=== PATIENT | female | born 1945 ===

== ENCOUNTER 2017-02-25 20:06 | Emergency (ER) | payer MEDICARE, MEDICAID ==
[2017-02-25 20:19] VITALS: BP 141/76; PULSE 74; RESP 18; TEMP 98.2; O2SAT 97
[2017-02-25] MEDS ORDERED: Sodium Chloride 0.9% 500 ML IV STA (20:50)
--- NOTE | 2017-02-25 20:56 | ED PDOC ---
Lower Extremity Pain/Injury Time Seen by Provider: 02/25/17 20:38 Chief Complaint (Nursing): Lower Extremity Problem/Injury Chief Complaint (Provider): Left knee pain/swelling History Per: Patient History/Exam Limitations: no limitations Onset/Duration Of Symptoms: Hrs (5) Current Symptoms Are (Timing): Still Present Severity: Moderate Additional History Per: Family (daughter ) Additional Complaint(s): Iwona Hill is a 72 y/o female, with a past medical history of hypertension, hypercholesterolemia, arthritis, and sciatica, presenting to the ER with her daughter s/p fall. Per daughter, patient was getting out of bed earlier today and fell on to her buttocks. Upon the moment of impact, patient did not sustain any trauma to the head, neck, or chest. However, the patient remained on the ground for approximately 5.5 hours until the daughter found her. Upon consulting with the PMD, the patient was advised to be brought in for evaluation for possible muscle deterioration/renal enzyme testing, prompting a visit today. Patient reports pain to her left knee w/ radiation down her leg and right hip. 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 Patient also has a past medical history of a CVA 10 years ago, and reported upon evaluation symptoms to her right side were from the stroke. Per daughter, patient has also been diagnosed with cancer in the past. PMD-Amanda - Ankle/Foot Description Of Injury: Fell Past Medical History Reviewed: Historical Data, Nursing Documentation, Vital Signs Vital Signs: Last Vital Signs Temp 98.2 F 02/25/17 20:15 Pulse 74 02/25/17 20:15 Resp 18 02/25/17 20:15 BP 141/76 02/25/17 20:15 Pulse Ox 97 02/25/17 20:15 - Medical History PMH: Arthritis, CVA (R side weakness), HTN, Hypercholesterolemia Other PMH: sciatica - Surgical History Surgical History: CABG, Pacemaker (Lt wall) - Family History Family History: States: Unknown Family Hx - Living Arrangements Living Arrangements: With Family - Social History Current smoker - smoking cessation education provided: No Alcohol: None Drugs: Denies - Allergies Allergies/Adverse Reactions: Allergies Allergy/AdvReac Type Severity Reaction Status Date / Time Sulfa (Sulfonamide Allergy ITCHING Verified 04/09/17 20:15 Antibiotics) Review of Systems ROS Statement: Except As Marked, All Systems Reviewed And Found Negative Cardiovascular: Negative for: Chest Pain Musculoskeletal: Positive for: Leg Pain (left knee), Other (right hip). Negative for: Neck Pain Neurological: Positive for: Weakness (right sided ). Negative for: Headache Physical Exam - Reviewed Nursing Documentation Reviewed: Yes Vital Signs Reviewed: Yes - Physical Exam Appears: Positive for: Non-toxic, No Acute Distress Head Exam: Positive for: ATRAUMATIC, NORMOCEPHALIC Skin: Positive for: Normal Color, Warm, Dry Eye Exam: Positive for: Normal appearance, EOMI, PERRL Neck: Positive for: Normal, Painless ROM, Supple Cardiovascular/Chest: Positive for: Regular Rate, Rhythm. Negative for: Murmur Respiratory: Positive for: Normal Breath Sounds. Negative for: Respiratory Distress Pulses-Dorsalis Pedis (L): 2+ Pulses-Dorsalis Pedis (R): 2+ Gastrointestinal/Abdominal: Positive for: Normal Exam, Tenderness ((+) right hip - mild) Back: Positive for: Normal Inspection. Negative for: L CVA Tenderness, R CVA Tenderness Extremity: Positive for: Normal ROM (full ROM of left knee but painful; limited ROM on right knee secondary to stroke ), Tenderness ((+) left knee- mild), Swelling (bilat ), Other ((-) laxity ) Neurologic/Psych: Positive for: Alert, peoplesoft financials II-XII, Oriented (x3) - Laboratory Results Result Diagrams: 02/25/17 21:55 02/25/17 21:55 Interpretation Of Abn Labs: 19.5 wbc; 27 bun - ECG O2 Sat by Pulse Oximetry: 97 - CT Scan/US ct Other Rad Studies (CT/US): Read By Radiologist Other Rad Interpretation: no fx - Progress ED Course And Treament: 1123: Pt. controlled. No fx. WBC elevation. Pt. and family comfortable going home and see pcp for repeat blood work. Pt. with no signs or symptoms for infection. No nausea, vomit, dyspnea, cough, dysuria. Wheelchair bound. AAOx3. Medical Decision Making Medical Decision Makin:38 Initial Impression- Left knee pain/right hip pain secondary to fall. R/o fractures Initial Plan- * CMP * CPK * Troponin * CBC w/ differential * XR Knee * Sodium Chloride 1,000 ml IV * Tylenol 650 mg PO * XR Hip * Re-eval Documented by Lance Ayala, acting as a scribe for Francisco Ayala MD. All medical record entries made by the Scribe were at my direction and personally dictated by me. I have reviewed the chart and agree that the record accurately reflects my personal performance of the history, physical exam, medical decision making, and the department course for this patient. I have also personally directed, reviewed, and agree with the discharge instructions and disposition. Disposition - Clinical Impression Clinical Impression: Hip injury - Patient ED Disposition Is Patient to be Admitted: No Counseled Patient/Family Regarding: Studies Performed, Diagnosis, Need For Followup - Disposition Referrals: [facility] [Outside] - 02/26/17 Disposition: Routine/Home Disposition Time: 23:28 Condition: STABLE Additional Instructions: Return if not better in 3 days. Instructions: Hip Pain (ED), Knee Pain (ED)
[2017-02-25 22:20] LABS: ALB/GLOB RATIO 0.9 (1.0-2.1); ALKALINE PHOSPHATASE 97 U/L (38-126); ALT/SGPT 33 U/L (9-52); AST/SGOT 30 U/L (14-36); BASO # 0.1 K/uL (0.0-0.2); BASO % 0.5 % (0.0-2.0); BILIRUBIN,TOTAL 0.6 mg/dl (0.2-1.3); BLOOD UREA NITROGEN 27 mg/dl (7-17); CALCIUM 10.5 mg/dL (8.4-10.2); CARBON DIOXIDE 26 mmol/L (22-30); CHLORIDE 102 mmol/L (98-107); GFR AFRICAN-AMERICAN > 60; GLUCOSE,RANDOM 122 mg/dL (65-105); HEMATOCRIT 41.4 % (34.0-47.0); LYMPH # 2.8 K/uL (1.0-4.3); LYMPH % 14.4 % (20.0-40.0); MEAN CELL VOLUME 84.1 fl (81.0-99.0); MEAN CORPUSCULAR HGB CONC 32.2 g/dL (33.0-37.0); MEAN PLATELET VOLUME 8.2 fl (7.2-11.7); MONO # 0.7 K/uL (0.0-0.8); MONO % 3.7 % (0.0-10.0); NEUT # 15.9 K/uL (1.8-7.0); NEUT % 81.4 % (50.0-75.0); POTASSIUM 4.2 MMOL/L (3.6-5.0); RED CELL DISTRIBUTION WIDTH 14.7 % (11.5-14.5); SODIUM 147 mmol/l (132-148); TOTAL PROTEIN 8.6 G/DL (6.3-8.2); WHITE BLOOD COUNT 19.5 K/uL (4.8-10.8)
--- NOTE | 2017-02-25 23:03 | CT ---
EXAM: CT Right Lower Extremity Without Intravenous Contrast, Hip CLINICAL HISTORY: 72 years old, female; Pain and injury or trauma; Fall; Initial encounter; Blunt trauma; Hip; Right; Injury date: 02-25-2017; Additional info: Hip pain; R/O FX TECHNIQUE: Axial computed tomography images of the right hip without intravenous contrast. This CT exam was performed using one or more of the following dose reduction techniques: automated exposure control, adjustment of the mA and/or kV according to patient size, and/or use of iterative reconstruction technique. Coronal and sagittal reformatted images were created and reviewed. EXAM DATE/TIME: 02/25/2017 9:38 PM COMPARISON: There are no prior studies for comparison. FINDINGS: Bones/joints: Bony structures are osteopenic. Visualized portion of the ileum and, ischia and and pubis are intact. Right sacroiliac joint is patent. There is vacuum phenomenon. There are severe degenerative changes in the right hip. There is joint space narrowing and subchondral sclerosis. There are subchondral cysts. There is osteophyte formation. There are no acute fractures. Soft tissues: There is bruising in the soft tissues posterior to the right hip Vasculature: There are vascular calcifications. Bladder: Technique limits evaluation of intrapelvic structures. Bladder is partially distended. Reproductive: There is mild prominence of the uterus. Other findings: There is a nonobstructive gas pattern. IMPRESSION: Severe osteoarthritis of the right hip, no acute fracture
[2017-02-25] MEDS ORDERED: Acetaminophen-Codeine 300/30 mg Tab PO STA (23:30)
[2017-02-25] MEDS ORDERED: Acetaminophen-Codeine 300/30 mg Tab ONE (23:51)
--- NOTE | 2017-02-26 10:33 | RAD ---
PROCEDURE: Left knee dated the 02/25/2017 HISTORY: pain COMPARISON: TECHNIQUE: AP sunrise and cross-table lateral views of the left knee performed. No prior study available comparison. FINDINGS: Current study reveals no evidence of acute displaced fracture nor dislocation. The osseous structures appear intact. Significant tricompartmental degenerative joint changes most notably affecting the medial and patellofemoral compartments. No significant joint effusion. IMPRESSION: No acute displaced fracture nor dislocation. Significant tricompartmental degenerative osteoarthritis as described. If symptoms persist or occult fracture suspected clinically, consider followup CT scan.
--- NOTE | 2017-02-26 12:20 | RAD ---
PROCEDURE: Pelvis and right hip dated 02/25/2017. HISTORY: pain COMPARISON: Correlation made with concurrent CT scan of the right hip. TECHNIQUE: AP view of the pelvis and AP/frogleg lateral views of the right hip performed. FINDINGS: No obvious acute displaced fracture nor dislocation however given the significant amount of osteoarthritis and slight varus angulation deformity, the possibility of early acute fracture cannot be completely excluded. Consider followup CT scan of the right hip. No evidence of dislocation. . Multilevel degenerative spondylosis of the lumbosacral spine. Calcific densities overlying the pelvis may represent a calcified buttock injection granulomata. IMPRESSION: Significant osteoarthritis right hip. No obvious acute displaced fracture seen however consider followup CT scan on due to the significant amount of osteoarthritis which may obscure underlying acute fracture. No evidence of dislocation.
== END 2017-02-26 00:15 | disposition home or self-care (01) ==
LOC: H.ER 20:06 → MERGE 20:06 → H.ER 02-26 00:15
DX: S79.912A Unspecified injury of left hip, initial encounter (principal); M25.562 Pain in left knee; W19.XXXA Unspecified fall, initial encounter; Y92.003 Bedroom of unspecified non-institutional (private) residence as the place of occurrence of the external cause; E78.00 Pure hypercholesterolemia, unspecified; I10 Essential (primary) hypertension; Z86.73 Personal history of transient ischemic attack (TIA), and cerebral infarction without residual deficits; Z95.0 Presence of cardiac pacemaker; Z95.1 Presence of aortocoronary bypass graft
CPT/HCPCS: 73503; 73564; 73700; 80053; 82550; 84484; 85025; 99284; J7040

== ENCOUNTER 2018-03-13 21:07 | Inpatient (IN) | payer MEDICARE, MEDICAID ==
[2018-03-13 21:08] VITALS: BMI 38.7
[2018-03-13] MEDS ORDERED: Clindamycin 600mg/50ml D5W 600 MG/50 ML VIAL IVPB STA (23:03)
--- NOTE | 2018-03-13 23:08 | ED PDOC ---
Burn Injury/Smoke Inhalation Time Seen by Provider: 03/13/18 22:36 Chief Complaint (Nursing): Burn Chief Complaint (Provider): burn History Per: Patient, Family History/Exam Limitations: no limitations Injury Occurred (Timing): Days Ago: (7) Type Of Burn (Context): Hot Liquid Front/Back of Body, Lg (Color): 1 - burn injury Additional Complaint(s): 73 y/o female presents with daughter for wound check to abdomen. Patient states one week ago she spilled hot coffee on her abdomen; since then has been applying [id number] antibiotic ointment and aloe vera. Daughter states area had yellow drainage and blood on bandage daily. Patient was seen by her primary care doctor today and sent to ED for evaluation of wound infection. Patient denies fever, nausea/vomiting, pain to site. Dr. Hailee Fournier ([place]) Past Medical History Reviewed: Historical Data, Nursing Documentation, Vital Signs Vital Signs: Last Vital Signs Temp 97.4 F L 03/13/18 21:24 Pulse 61 03/13/18 21:24 Resp 20 03/13/18 21:24 BP 158/83 H 03/13/18 21:24 Pulse Ox 96 03/13/18 21:24 - Medical History PMH: Arthritis, Bronchitis, CAD, COPD, CVA (R side weakness), Depression, HTN, Hypercholesterolemia, Hyperthyroidism, Chronic Kidney Disease Denies: HIV - Surgical History Surgical History: CABG, Pacemaker (Lt wall) - Family History Family History: States: Unknown Family Hx - Home Medications Home Medications: Ambulatory Orders Medication Instructions Recorded Anastrozole [Arimidex 1 mg Tab] 1 mg PO DAILY 03/14/18 Atorvastatin Calcium [Atorvastatin 10 mg PO HS 03/14/18 Calcium] Escitalopram [Lexapro] 10 mg PO BID 03/14/18 Furosemide [Lasix] 40 mg PO DAILY 03/14/18 Metformin HCl [Glucophage] 1,000 mg PO DAILY 03/14/18 Potassium Chloride [K-Dur 20 mEq 20 meq PO DAILY 03/14/18 ER Tab] Ranitidine HCl [Heartburn Relief] 150 mg PO HS 03/14/18 amLODIPine [Norvasc] 10 mg PO BID 03/14/18 - Allergies Allergies/Adverse Reactions: Allergies Allergy/AdvReac Type Severity Reaction Status Date / Time Sulfa (Sulfonamide Allergy RASH Verified 07/30/16 01:57 Antibiotics) Review of Systems ROS Statement: Except As Marked, All Systems Reviewed And Found Negative Skin: Positive for: Lesions Physical Exam - Reviewed Nursing Documentation Reviewed: Yes Vital Signs Reviewed: Yes - Physical Exam Appears: Positive for: Well, Non-toxic, No Acute Distress Head Exam: Positive for: ATRAUMATIC, NORMAL INSPECTION, NORMOCEPHALIC Skin: Positive for: Normal Color Eye Exam: Positive for: Normal appearance ENT: Positive for: Normal ENT Inspection Cardiovascular/Chest: Positive for: Regular Rate, Rhythm Respiratory: Positive for: Normal Breath Sounds Gastrointestinal/Abdominal: Positive for: Normal Exam, Other ([id number] 2nd degree partial thickness burn noted. + bleeding near wound edges. + surrounding erythema, warmth. ) Back: Positive for: Normal Inspection Extremity: Positive for: Normal ROM Neurologic/Psych: Positive for: Alert, Oriented, Motor/Sensory Deficits (chronc right sided weakness), Facial Droop (right; chronic) - Laboratory Results Result Diagrams: 03/14/18 00:22 03/14/18 00:22 - ECG ECG: Positive for: Viewed By Me (reviewed by ED attending) ECG Rhythm: Positive for: Atrioventricular Paced O2 Sat by Pulse Oximetry: 96 Pulse Ox Interpretation: Normal - Radiology X-Ray: Viewed By Me X-Ray Interpretation: No Acute Disease (no changes from previous) - Progress ED Course And Treament: labs, IV clindamycin Wound cleaned with normal saline, bacitracin applied. Bandage applied Case discussed with Dr. Boyle for admission, who recommends IV unasyn and local wound care Disposition - Clinical Impression Clinical Impression: Burn of abdomen wall, Cellulitis - Patient ED Disposition Is Patient to be Admitted: Yes - Disposition Disposition Time: 01:22 Condition: FAIR
[2018-03-13] MEDS ORDERED: Clindamycin 600mg/50ml NS 600 MG/50 ML BAG IVPB ONE (23:49)
[2018-03-14 00:24] LABS: VENOUS BLOOD GAS BASE EXCESS 4.4 mmol/L (0.0-2.0); VENOUS BLOOD GAS PCO2 52 mmHg (40-60); VENOUS BLOOD GAS PO2 36 mm/Hg (30-55); VENOUS BLOOD PH 7.38 (7.32-7.43)
[2018-03-14 00:33] LABS: BASO % 0.3 % (0.0-2.0); EOS # 0.3 K/uL (0.0-0.7); EOS % 1.9 % (0.0-4.0); HEMOGLOBIN 12.8 g/dL (12.0-16.0); LYMPH # 4.1 K/uL (1.0-4.3); LYMPH % 30.5 % (20.0-40.0); MEAN CELL VOLUME 84.6 fl (81.0-99.0); MEAN CORPUSCULAR HEMOGLOBIN 28.5 pg (27.0-31.0); MEAN CORPUSCULAR HGB CONC 33.6 g/dL (33.0-37.0); MEAN PLATELET VOLUME 7.5 fl (7.2-11.7); MONO # 1.2 K/uL (0.0-0.8); MONO % 8.8 % (0.0-10.0); NEUT # 7.8 K/uL (1.8-7.0); NEUT % 58.5 % (50.0-75.0); RBC 4.49 Mil/uL (3.80-5.20); RED CELL DISTRIBUTION WIDTH 14.7 % (11.5-14.5); WHITE BLOOD COUNT 13.3 K/uL (4.8-10.8)
[2018-03-14 00:42] LABS: ALB/GLOB RATIO 0.9 (1.0-2.1); ALBUMIN 3.6 g/dL (3.5-5.0); ALT/SGPT 28 U/L (9-52); AST/SGOT 20 U/L (14-36); BLOOD UREA NITROGEN 23 mg/dl (7-17); CALCIUM 9.3 mg/dL (8.4-10.2); GFR AFRICAN-AMERICAN > 60; GFR NON-AFRICAN AMERICAN > 60
[2018-03-14] MEDS ORDERED: Oxycodone/Acetaminophen 5/325 mg Tab PO PRN (07:04)
--- NOTE | 2018-03-14 08:04 | CP.PCM.HP ---
<Gene Oneal - Last Filed: 03/14/18 07:52> History of Present Illness - History of Present Illness History of Present Illness: CC: burn HPI: 73 y/o woman w/ pmh of preserved EF CHF, pacemaker, HTN, NIDDM2, CAD s/p CABG, CVA 10 yrs ago, breast CA on chemotherapy presented to ED w/ burn wound. The patient reports that 1 week ago she spilled coffee on herself by accident at home. The patient was taking care of wound on her own w/ topical aloe vera and neosporin. The patient then reports that daughter noticed burn site was having yellow and bloody discharge when changing dressing/bandage. The patient reports pain only at site and only w/ touch. The patient denies headaches, chest pain, SOB, nausea, vomiting, diarrhea, dysuria, or fever. PMD: Dr. Hailee Fournier ([place]) PMH: preserved EF CHF, pacemaker, HTN, NIDDM2, CAD s/p CABG, CVA 10 yrs ago, breast CA on chemotherapy meds: see med list allergies: sulfa PSH: CABG, pacemaker Fam: non-contributory SOC: denies smoking, alcohol, and drugs ROS: 12 points assessed and negative unless otherwise reported in HPI patient seen and examined this morning at bedside w/ Dr. Boyle Present on Admission - Present on Admission Any Indicators Present on Admission: No History of DVT/PE: No History of Uncontrolled Diabetes: No Urinary Catheter: No Decubitus Ulcer Present: No Review of Systems - Review of Systems All systems: reviewed and no additional remarkable complaints except - Constitutional Constitutional: absent: Chills, Fever, Headache - EENT Eyes: absent: Change in Vision - Cardiovascular Cardiovascular: absent: Chest Pain - Respiratory Respiratory: absent: Dyspnea - Gastrointestinal Gastrointestinal: absent: Abdominal Pain, Diarrhea, Nausea, Vomiting - Genitourinary Genitourinary: absent: Dysuria - Integumentary Integumentary: As Per HPI Past Patient History - Tetanus Immunizations Tetanus Immunization: Unknown - Past Medical History & Family History Past Medical History?: Yes - Past Social History Smoking Status: Never Smoked - CARDIAC Hx Cardiac Disorders: Yes Hx Hypercholesterolemia: Yes Hx Hypertension: Yes Hx Pacemaker: Yes (Lt wall) - PULMONARY Hx Respiratory Disorders: Yes Hx Bronchitis: Yes Hx Chronic Obstructive Pulmonary Disease (COPD): Yes - NEUROLOGICAL Hx Neurological Disorder: Yes HX Cerebrovascular Accident: Yes (Rt sided weakness) - HEENT Hx HEENT Problems: Yes Other/Comment: Use Eyeglasses - RENAL Hx Chronic Kidney Disease: Yes - ENDOCRINE/METABOLIC Hx Endocrine Disorders: Yes Hx Hyperthyroidism: Yes - HEMATOLOGICAL/ONCOLOGICAL Hx Blood Disorders: No Hx Human Immunodeficiency Virus (HIV): No - INTEGUMENTARY Hx Dermatological Problems: Yes Hx Moon: Yes - MUSCULOSKELETAL/RHEUMATOLOGICAL Hx Musculoskeletal Disorders: Yes Hx Arthritis: Yes Hx Falls: Yes - GASTROINTESTINAL Hx Gastrointestinal Disorders: Yes Hx Gastritis: Yes - GENITOURINARY/GYNECOLOGICAL Hx Genitourinary Disorders: No - PSYCHIATRIC Hx Psychophysiologic Disorder: Yes Hx Depression: Yes Hx Substance Use: No - SURGICAL HISTORY Hx Surgeries: Yes Hx Coronary Artery Bypass Graft: Yes - ANESTHESIA Hx Anesthesia: Yes Hx Anesthesia Reactions: No Hx Malignant Hyperthermia: No Has any member of the family had a problem w/ anesthesia?: No Meds Allergies/Adverse Reactions: Allergies Allergy/AdvReac Type Severity Reaction Status Date / Time Sulfa (Sulfonamide Allergy RASH Verified 07/30/16 01:57 Antibiotics) Physical Exam - Constitutional Appears: Non-toxic, No Acute Distress - Head Exam Head Exam: ATRAUMATIC, NORMAL INSPECTION, NORMOCEPHALIC - Eye Exam Eye Exam: Normal appearance - ENT Exam ENT Exam: Mucous Membranes Moist - Neck Exam Neck exam: Positive for: Full Rom. Negative for: Tenderness - Respiratory Exam Respiratory Exam: Clear to Auscultation Bilateral. absent: Accessory Muscle Use , Decreased Breath Sounds, Rales, Rhonchi, Wheezes, Respiratory Distress - Cardiovascular Exam Cardiovascular Exam: REGULAR RHYTHM, RRR. absent: Tachycardia - GI/Abdominal Exam GI & Abdominal Exam: Normal Bowel Sounds, Soft, Tenderness (at burn site). absent: Distended - Extremities Exam Extremities exam: Negative for: calf tenderness, pedal edema, tenderness - Neurological Exam Neurological exam: Alert, Oriented x3 - Skin Additional comments: 6-8 cm deep partial thickness burn w/ surrounding erythema, mild pus and bloody discharge noted, dressing changed, c/d/i Results - Vital Signs Recent Vital Signs: Last Vital Signs Temp 97.4 F L 03/14/18 02:39 Pulse 60 03/14/18 02:39 Resp 18 03/14/18 02:39 BP 143/72 03/14/18 02:39 Pulse Ox 97 03/14/18 02:39 - Labs Result Diagrams: 03/14/18 00:22 03/14/18 00:22 Labs: Laboratory Results - last 24 hr 03/14/18 03/14/18 03/14/18 00:20 00:22 00:22 WBC 13.3 H RBC 4.49 Hgb 12.8 Hct 38.0 MCV 84.6 MCH 28.5 MCHC 33.6 RDW 14.7 H Plt Count 434 H MPV 7.5 Neut % (Auto) 58.5 Lymph % (Auto) 30.5 [place] % (Auto) 8.8 Eos % (Auto) 1.9 Baso % (Auto) 0.3 Neut # (Auto) 7.8 H Lymph # (Auto) 4.1 [place] # (Auto) 1.2 H Eos # (Auto) 0.3 Baso # (Auto) 0.0 pO2 36 VBG pH 7.38 VBG pCO2 52 VBG HCO3 27.6 VBG Total CO2 32.4 H VBG O2 Sat (Calc) 64.0 VBG Base Excess 4.4 H VBG Potassium 3.7 Sodium 137.0 147 Chloride 104.0 100 Glucose 115 H Lactate 1.6 FiO2 21.0 Potassium 3.9 Carbon Dioxide 28 Anion Gap 23 H BUN 23 H Creatinine 0.8 Est GFR ( Amer) > 60 Est GFR (Non-Af Amer) > 60 Random Glucose 114 H Calcium 9.3 Total Bilirubin 0.4 AST 20 ALT 28 Alkaline Phosphatase 81 Total Protein 7.5 Albumin 3.6 Globulin 3.9 Albumin/Globulin Ratio 0.9 L Venous Blood Potassium 3.7 Assessment & Plan (1) Burn of abdomen wall Status: Acute Priority: High (2) Cellulitis Status: Acute Priority: High (3) DM2 (diabetes mellitus, type 2) Status: Chronic Priority: Medium (4) CAD (coronary artery disease) Status: Chronic Priority: Medium (5) Congestive cardiac failure Status: Chronic Priority: Medium (6) Hypertension Status: Chronic Priority: Low - Assessment and Plan (Free Text) Plan: afebrile, non-tachycardic, normotensive patient shows no indication of sepsis c/w home medications wound care consult ordered CBC: 13.3>12.8/38.0<434 CMP: 147/3.9, 100/28, 23/0.8, glucose 114, AST 20, ALT 28, alk phos 81 start vanc 1 gm IV daily start zosyn 3.375 gm Q6h IV f/u EKG f/u CXR f/u wound culture f/u blood culture prophylactic measures: DVT SCDs monitor for acute changes <Boyle,Andrew K - Last Filed: 03/14/18 08:42> Results - Vital Signs Recent Vital Signs: Last Vital Signs Temp 97.9 F 03/14/18 08:27 Pulse 58 L 03/14/18 08:27 Resp 18 03/14/18 08:27 BP 144/85 03/14/18 08:27 Pulse Ox 95 03/14/18 08:27 - Labs Result Diagrams: 03/14/18 00:22 03/14/18 00:22 Labs: Laboratory Results - last 24 hr 03/14/18 03/14/18 03/14/18 00:20 00:22 00:22 WBC 13.3 H RBC 4.49 Hgb 12.8 Hct 38.0 MCV 84.6 MCH 28.5 MCHC 33.6 RDW 14.7 H Plt Count 434 H MPV 7.5 Neut % (Auto) 58.5 Lymph % (Auto) 30.5 [place] % (Auto) 8.8 Eos % (Auto) 1.9 Baso % (Auto) 0.3 Neut # (Auto) 7.8 H Lymph # (Auto) 4.1 [place] # (Auto) 1.2 H Eos # (Auto) 0.3 Baso # (Auto) 0.0 pO2 36 VBG pH 7.38 VBG pCO2 52 VBG HCO3 27.6 VBG Total CO2 32.4 H VBG O2 Sat (Calc) 64.0 VBG Base Excess 4.4 H VBG Potassium 3.7 Sodium 137.0 147 Chloride 104.0 100 Glucose 115 H Lactate 1.6 FiO2 21.0 Potassium 3.9 Carbon Dioxide 28 Anion Gap 23 H BUN 23 H Creatinine 0.8 Est GFR ( Amer) > 60 Est GFR (Non-Af Amer) > 60 Random Glucose 114 H Calcium 9.3 Total Bilirubin 0.4 AST 20 ALT 28 Alkaline Phosphatase 81 Total Protein 7.5 Albumin 3.6 Globulin 3.9 Albumin/Globulin Ratio 0.9 L Venous Blood Potassium 3.7 Assessment & Plan - Assessment and Plan (Free Text) Assessment: Patient was personally seen and examined by me in rounds with residents. Available labs and diagnostic data reviewed. Case, Patient's condition and management plan discussed with residents in rounds. Agree with resident's progress note. Plan: As ordered.
[2018-03-14] MEDS ORDERED: Silver Sulfadiazine 1% CREAM (50 gm) TOP SCH (09:00)
[2018-03-14] MEDS ORDERED: Silver Sulfadiazine 1% Cream (20 gm) TOP SCH (09:45)
--- NOTE | 2018-03-14 09:49 | CARD ---
APPROVED REPORT EKG Measurement Heart [id number] ME [id number] [id number] <Conclusion> AV dual-paced rhythm Abnormal ECG
--- NOTE | 2018-03-14 09:57 | RAD ---
HISTORY: admit COMPARISON: 12/15/2014 chest x-ray -CT chest with contrast report 12/16/2014 also noted FINDINGS: LUNGS: Horizontal platelike atelectasis and/or fibrosis and left mid lung zone noted otherwise no consolidation appreciated. A at 9 to 10 mm opacity nodule like projects at the right lung base -not appreciated as such on prior studies- its signal etiology is unclear it is not typical for a infiltrate however. May be technical. Consider repeat chest x-ray PA with oblique views to clarify. PLEURA: No significant pleural effusion identified, no pneumothorax apparent. CARDIOVASCULAR: Cardiomegaly. Prominent tortuous ectatic unfolded thoracic aorta with atherosclerotic like vascular calcifications. The prior CT stated no aneurysm. The chest x-ray appearances are similar. Duallead pacemaker device intact as before Mild pulmonary venous congestion suggested- possibly chronic OSSEOUS STRUCTURES: Unremarkable as seen. VISUALIZED UPPER ABDOMEN: Normal. OTHER FINDINGS: None. IMPRESSION: Cardiomegaly with mild pulmonary venous congestion -likely in part chronic. Other findings as above.
[2018-03-14] MEDS: Potassium Chloride 20 mEq ER Tab PO SCH (11:27)
[2018-03-14] MEDS: Piperacillin/Tazobact 3.375 GM in Sodium Chloride 0.9% 100 ML IVPB SCH ×3 (11:28→21:51)
[2018-03-14] MEDS: Insulin Lispro (humaLOG) 100 Units/ml Inj SC SCH (21:58)
[2018-03-15] MEDS: Piperacillin/Tazobact 3.375 GM in Sodium Chloride 0.9% 100 ML IVPB SCH ×4 (04:53→21:35)
[2018-03-15 06:37] LABS: BASO # 0.1 K/uL (0.0-0.2); BASO % 0.8 % (0.0-2.0); EOS # 0.4 K/uL (0.0-0.7); EOS % 3.6 % (0.0-4.0); HEMOGLOBIN 12.6 g/dL (12.0-16.0); LYMPH % 36.8 % (20.0-40.0); MEAN CELL VOLUME 84.5 fl (81.0-99.0); MEAN CORPUSCULAR HEMOGLOBIN 29.1 pg (27.0-31.0); MEAN CORPUSCULAR HGB CONC 34.5 g/dL (33.0-37.0); MEAN PLATELET VOLUME 7.6 fl (7.2-11.7); MONO # 1.1 K/uL (0.0-0.8); MONO % 10.1 % (0.0-10.0); NEUT # 5.3 K/uL (1.8-7.0); NEUT % 48.7 % (50.0-75.0); NRBC % 0.1 % (0.0-0.0); RBC 4.31 Mil/uL (3.80-5.20); RED CELL DISTRIBUTION WIDTH 14.5 % (11.5-14.5); WHITE BLOOD COUNT 10.9 K/uL (4.8-10.8)
[2018-03-15 07:00] LABS: ALB/GLOB RATIO 0.9 (1.0-2.1); ALBUMIN 3.5 g/dL (3.5-5.0); ALT/SGPT 27 U/L (9-52); AST/SGOT 13 U/L (14-36); BLOOD UREA NITROGEN 26 mg/dl (7-17); CALCIUM 9.1 mg/dL (8.4-10.2); GFR AFRICAN-AMERICAN > 60; GFR NON-AFRICAN AMERICAN > 60
[2018-03-15] MEDS: Insulin Lispro (humaLOG) 100 Units/ml Inj SC SCH ×4 (07:26→21:36)
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
[2018-03-15] MEDS: Potassium Chloride 20 mEq ER Tab PO SCH (08:57)
[2018-03-15] MEDS: Lactobacillus Acidophilus 500 MU Cap PO SCH ×2 (08:57→16:20)
[2018-03-15] MEDS: Enoxaparin 40 mg Syringe SC SCH (11:18)
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
[2018-03-16] MEDS: Piperacillin/Tazobact 3.375 GM in Sodium Chloride 0.9% 100 ML IVPB SCH ×3 (04:39→21:47)
[2018-03-16] MEDS: Enoxaparin 40 mg Syringe SC SCH (09:27)
[2018-03-16] MEDS: Potassium Chloride 20 mEq ER Tab PO SCH (09:28)
--- NOTE | 2018-03-16 09:30 | PN ---
DATE: 03/16/2018 SUBJECTIVE: The patient is seen and examined. Interim events noted. The patient remains in regular medical floor. The patient feels okay. Abdominal pain is present, but controlled. No chest pain or shortness of breath. Tolerating food very well without any discomfort, moving bowels. PHYSICAL EXAMINATION: GENERAL: The patient is in no acute distress. VITAL SIGNS: Stable. HEART: S1 and S2 normal and regular. LUNGS: Good bilateral air exchange. GASTROINTESTINAL: Abdomen is soft and nontender. Abdominal wound is slowly healing and cellulitis tenderness is slowly decreasing. Induration is also improving. No sign of acute abdomen. No guarding, no rigidity, and no rebound. Bowel sounds are plus and normal. EXTREMITIES: No calf swelling. No tenderness. No acute ischemia. CENTRAL NERVOUS SYSTEM: Exam is essentially unchanged. DIAGNOSTIC DATA: Available diagnostic data reviewed. ASSESSMENT AND PLAN: Case was discussed with the patient's primary care physician, Dr. Douglas. Plan as ordered. Andrew Boyle MD [facility]
[2018-03-16] MEDS: Lactobacillus Acidophilus 500 MU Cap PO SCH ×2 (09:32→17:30)
[2018-03-16] MEDS: Insulin Lispro (humaLOG) 100 Units/ml Inj SC SCH ×4 (09:41→21:50)
[2018-03-16 11:33] LABS: HEMOGLOBIN 12.4 g/dL (12.0-16.0); MEAN CELL VOLUME 84.5 fl (81.0-99.0); MEAN CORPUSCULAR HEMOGLOBIN 28.6 pg (27.0-31.0); MEAN CORPUSCULAR HGB CONC 33.8 g/dL (33.0-37.0); RBC 4.32 Mil/uL (3.80-5.20); RED CELL DISTRIBUTION WIDTH 14.6 % (11.5-14.5); WHITE BLOOD COUNT 11.9 K/uL (4.8-10.8)
[2018-03-16 11:48] LABS: BLOOD UREA NITROGEN 22 mg/dl (7-17); GFR AFRICAN-AMERICAN > 60; GFR NON-AFRICAN AMERICAN > 60
[2018-03-16 23:46] VITALS: O2SAT 98
[2018-03-17] MEDS: Piperacillin/Tazobact 3.375 GM in Sodium Chloride 0.9% 100 ML IVPB SCH ×2 (04:40→10:42)
[2018-03-17 07:37] LABS: HEMOGLOBIN 12.7 g/dL (12.0-16.0); MEAN CELL VOLUME 84.3 fl (81.0-99.0); MEAN CORPUSCULAR HEMOGLOBIN 28.2 pg (27.0-31.0); MEAN CORPUSCULAR HGB CONC 33.5 g/dL (33.0-37.0); RBC 4.52 Mil/uL (3.80-5.20); RED CELL DISTRIBUTION WIDTH 14.9 % (11.5-14.5); WHITE BLOOD COUNT 13.1 K/uL (4.8-10.8)
[2018-03-17 07:54] VITALS: BP 138/75; PULSE 74; RESP 18; TEMP 98
[2018-03-17 07:59] LABS: ALB/GLOB RATIO 0.9 (1.0-2.1); ALBUMIN 3.8 g/dL (3.5-5.0); ALT/SGPT 29 U/L (9-52); AST/SGOT 26 U/L (14-36); BLOOD UREA NITROGEN 19 mg/dl (7-17); CALCIUM 8.7 mg/dL (8.4-10.2); GFR AFRICAN-AMERICAN > 60; GFR NON-AFRICAN AMERICAN > 60
[2018-03-17] MEDS: Lactobacillus Acidophilus 500 MU Cap PO SCH (08:47)
[2018-03-17] MEDS: Insulin Lispro (humaLOG) 100 Units/ml Inj SC SCH ×2 (08:50→12:39)
[2018-03-17] MEDS: Potassium Chloride 20 mEq ER Tab PO SCH (08:51)
[2018-03-17] MEDS: Enoxaparin 40 mg Syringe SC SCH (08:52)
--- NOTE | 2018-03-19 08:04 | PN ---
DATE: 03/17/2018 SUBJECTIVE: The patient is seen and examined. Interim events noted. The patient remains in regular medical floor. Feels okay. Denies any specific complaint of chest pain or shortness of breath. Abdominal wound pain is slowly improving. PHYSICAL EXAMINATION GENERAL: The patient is in no acute distress. VITAL SIGNS: Stable. HEART: S1 and S2, normal and regular. LUNGS: Good bilateral air exchange. ABDOMEN: Soft and nontender. The patient's abdominal wall ulcer is slowly healing. No sign of complications. EXTREMITIES: No edema. No calf swelling. No tenderness. No acute ischemia. CENTRAL NERVOUS SYSTEM: Exam is essentially unchanged. DIAGNOSTIC DATA: Available diagnostic data reviewed. ASSESSMENT AND PLAN: Overall, the patient . Andrew Boyle MD
== END 2018-03-17 15:45 | DRG 935 ==
LOC: H.ER 21:07 → H.ERHOLD 03-14 01:22 → H.MEDSURG1 03-14 02:28
PROVIDERS: ADMIT Internal Medicine; ATTEND Internal Medicine
DX: T21.22XA Burn of second degree of abdominal wall, initial encounter (principal); L03.311 Cellulitis of abdominal wall; I50.32 Chronic diastolic (congestive) heart failure; B95.7 Other staphylococcus as the cause of diseases classified elsewhere; I11.0 Hypertensive heart disease with heart failure; I25.10 Atherosclerotic heart disease of native coronary artery without angina pectoris; J44.9 Chronic obstructive pulmonary disease, unspecified; E78.00 Pure hypercholesterolemia, unspecified; E11.9 Type 2 diabetes mellitus without complications; M19.90 Unspecified osteoarthritis, unspecified site; Z86.73 Personal history of transient ischemic attack (TIA), and cerebral infarction without residual deficits; Z95.0 Presence of cardiac pacemaker; Z95.1 Presence of aortocoronary bypass graft; Z85.3 Personal history of malignant neoplasm of breast; Z92.21 Personal history of antineoplastic chemotherapy; Z79.84 Long term (current) use of oral hypoglycemic drugs; Z88.2 Allergy status to sulfonamides; X10.0XXA Contact with hot drinks, initial encounter; Y92.009 Unspecified place in unspecified non-institutional (private) residence as the place of occurrence of the external cause

== ENCOUNTER 2018-03-17 16:15 | Inpatient (IN) | payer OTHER, MEDICAID ==
[2018-03-17 16:19] VITALS: BMI 36.1
[2018-03-17] MEDS ORDERED: Oxycodone/Acetaminophen 5/325 mg Tab PO PRN (16:53)
[2018-03-17 16:59] VITALS: RESP 20
[2018-03-17] MEDS: Piperacillin/Tazobact 3.375 GM in Sodium Chloride 0.9% 100 ML IVPB SCH ×2 (17:37→23:58)
[2018-03-17] MEDS: Lactobacillus Acidophilus 500 MU Cap PO SCH (17:37)
[2018-03-17] MEDS: Insulin Lispro (humaLOG) 100 Units/ml Inj SC SCH (21:29)
[2018-03-18] MEDS: Piperacillin/Tazobact 3.375 GM in Sodium Chloride 0.9% 100 ML IVPB SCH ×3 (05:05→17:30)
[2018-03-18] MEDS: Insulin Lispro (humaLOG) 100 Units/ml Inj SC SCH ×4 (06:42→21:40)
[2018-03-18] MEDS: Lactobacillus Acidophilus 500 MU Cap PO SCH ×2 (08:56→17:29)
[2018-03-18] MEDS: Potassium Chloride 20 mEq ER Tab PO SCH (08:57)
[2018-03-18] MEDS: Enoxaparin 40 mg Syringe SC SCH (08:59)
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
[2018-03-19] MEDS: Piperacillin/Tazobact 3.375 GM in Sodium Chloride 0.9% 100 ML IVPB SCH ×4 (00:31→19:20)
[2018-03-19] MEDS: Insulin Lispro (humaLOG) 100 Units/ml Inj SC SCH ×4 (07:38→21:15)
[2018-03-19] MEDS: Potassium Chloride 20 mEq ER Tab PO SCH (08:35)
[2018-03-19] MEDS: Lactobacillus Acidophilus 500 MU Cap PO SCH ×2 (08:36→16:47)
[2018-03-19] MEDS: Enoxaparin 40 mg Syringe SC SCH (09:59)
[2018-03-20] MEDS: Piperacillin/Tazobact 3.375 GM in Sodium Chloride 0.9% 100 ML IVPB SCH ×4 (00:27→17:39)
[2018-03-20] MEDS: Insulin Lispro (humaLOG) 100 Units/ml Inj SC SCH ×4 (07:01→22:00)
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
[2018-03-20] MEDS: Potassium Chloride 20 mEq ER Tab PO SCH (08:38)
[2018-03-20] MEDS: Enoxaparin 40 mg Syringe SC SCH (08:40)
[2018-03-20] MEDS: Lactobacillus Acidophilus 500 MU Cap PO SCH ×2 (08:46→17:38)
[2018-03-21] MEDS: Piperacillin/Tazobact 3.375 GM in Sodium Chloride 0.9% 100 ML IVPB SCH ×4 (00:29→17:36)
[2018-03-21] MEDS: Insulin Lispro (humaLOG) 100 Units/ml Inj SC SCH ×4 (06:32→21:43)
[2018-03-21 06:40] LABS: HEMOGLOBIN 12.7 g/dL (12.0-16.0); MEAN CELL VOLUME 83.8 fl (81.0-99.0); MEAN CORPUSCULAR HEMOGLOBIN 28.8 pg (27.0-31.0); MEAN CORPUSCULAR HGB CONC 34.4 g/dL (33.0-37.0); RBC 4.4 Mil/uL (3.80-5.20); RED CELL DISTRIBUTION WIDTH 14.6 % (11.5-14.5); WHITE BLOOD COUNT 13.3 K/uL (4.8-10.8)
[2018-03-21 06:53] LABS: ALBUMIN 3.8 g/dL (3.5-5.0); ALT/SGPT 47 U/L (9-52); AST/SGOT 29 U/L (14-36); BLOOD UREA NITROGEN 19 mg/dl (7-17); CALCIUM 9.3 mg/dL (8.4-10.2); GFR AFRICAN-AMERICAN > 60; GFR NON-AFRICAN AMERICAN > 60
[2018-03-21] MEDS: Lactobacillus Acidophilus 500 MU Cap PO SCH ×2 (08:34→16:52)
[2018-03-21] MEDS: Enoxaparin 40 mg Syringe SC SCH (08:35)
[2018-03-21] MEDS: Potassium Chloride 20 mEq ER Tab PO SCH (08:39)
[2018-03-21] MEDS ORDERED: Oxycodone/Acetaminophen 5/325 mg Tab PO PRN (10:26)
--- NOTE | 2018-03-21 13:30 | PN ---
DATE: 03/21/2018 SUBJECTIVE: The patient is seen and examined. Interim events noted. The patient remains in Transitional Care Unit. Feels much better. No chest pain. No shortness of breath. Abdominal pain improved. The patient is tolerating diet. No problems with stool or urine. PHYSICAL EXAMINATION: GENERAL: The patient is in no acute distress. VITAL SIGNS: Stable. HEART: S1 and S2, normal and regular. LUNGS: Good bilateral air exchange. ABDOMEN: Soft and nontender. EXTREMITIES: No edema. No calf swelling. No tenderness. No acute ischemia. CENTRAL NERVOUS SYSTEM: Exam is essentially unchanged. SKIN: Abdominal wall healing nicely. No sign of complications. DIAGNOSTIC DATA: Available diagnostic data reviewed. ASSESSMENT AND PLAN: Overall, the patient's general medical condition is stable. Plan as ordered. Andrew Boyle MD
[2018-03-22] MEDS: Piperacillin/Tazobact 3.375 GM in Sodium Chloride 0.9% 100 ML IVPB SCH ×4 (00:30→18:26)
[2018-03-22] MEDS: Insulin Lispro (humaLOG) 100 Units/ml Inj SC SCH ×4 (06:34→22:08)
[2018-03-22 08:51] LABS: BASO # 0.1 K/uL (0.0-0.2); EOS # 0.5 K/uL (0.0-0.7); EOS % 4.9 % (0.0-4.0); HEMOGLOBIN 12.7 g/dL (12.0-16.0); LYMPH # 3.4 K/uL (1.0-4.3); LYMPH % 30.5 % (20.0-40.0); MEAN CELL VOLUME 84.1 fl (81.0-99.0); MEAN CORPUSCULAR HEMOGLOBIN 28.4 pg (27.0-31.0); MEAN CORPUSCULAR HGB CONC 33.8 g/dL (33.0-37.0); MEAN PLATELET VOLUME 7.4 fl (7.2-11.7); MONO # 0.7 K/uL (0.0-0.8); MONO % 6.6 % (0.0-10.0); NEUT # 6.4 K/uL (1.8-7.0); RBC 4.47 Mil/uL (3.80-5.20); RED CELL DISTRIBUTION WIDTH 14.6 % (11.5-14.5); WHITE BLOOD COUNT 11.3 K/uL (4.8-10.8)
[2018-03-22] MEDS: Lactobacillus Acidophilus 500 MU Cap PO SCH ×2 (08:56→16:12)
[2018-03-22] MEDS: Potassium Chloride 20 mEq ER Tab PO SCH (08:57)
[2018-03-22] MEDS: Enoxaparin 40 mg Syringe SC SCH (08:59)
--- NOTE | 2018-03-22 10:06 | CP.PCM.DIS ---
Provider - Provider Date of Admission: 03/17/18 16:25 Attending physician: Andrew Boyle MD Hospital Course - Lab Results Lab Results: Most Recent Lab Values WBC 11.3 K/uL (4.8-10.8) H 03/22/18 08:35 RBC 4.47 Mil/uL (3.80-5.20) 03/22/18 08:35 Hgb 12.7 g/dL (12.0-16.0) 03/22/18 08:35 Hct 37.6 % (34.0-47.0) 03/22/18 08:35 MCV 84.1 fl (81.0-99.0) 03/22/18 08:35 MCH 28.4 pg (27.0-31.0) 03/22/18 08:35 MCHC 33.8 g/dL (33.0-37.0) 03/22/18 08:35 RDW 14.6 % (11.5-14.5) H 03/22/18 08:35 Plt Count 491 K/uL (130-400) H 03/22/18 08:35 MPV 7.4 fl (7.2-11.7) 03/22/18 08:35 Neut % (Auto) 57.0 % (50.0-75.0) 03/22/18 08:35 Lymph % (Auto) 30.5 % (20.0-40.0) 03/22/18 08:35 Mellette % (Auto) 6.6 % (0.0-10.0) 03/22/18 08:35 Eos % (Auto) 4.9 % (0.0-4.0) H 03/22/18 08:35 Baso % (Auto) 1.0 % (0.0-2.0) 03/22/18 08:35 Neut # (Auto) 6.4 K/uL (1.8-7.0) 03/22/18 08:35 Lymph # (Auto) 3.4 K/uL (1.0-4.3) 03/22/18 08:35 Mellette # (Auto) 0.7 K/uL (0.0-0.8) 03/22/18 08:35 Eos # (Auto) 0.5 K/uL (0.0-0.7) 03/22/18 08:35 Baso # (Auto) 0.1 K/uL (0.0-0.2) 03/22/18 08:35 Sodium 143 mmol/l (132-148) 03/21/18 05:55 Potassium 3.7 MMOL/L (3.6-5.0) 03/21/18 05:55 Chloride 104 mmol/L (98-107) 03/21/18 05:55 Carbon Dioxide 24 mmol/L (22-30) 03/21/18 05:55 Anion Gap 19 (10-20) 03/21/18 05:55 BUN 19 mg/dl (7-17) H 03/21/18 05:55 Creatinine 0.8 mg/dl (0.7-1.2) 03/21/18 05:55 Est GFR ( Amer) > 60 03/21/18 05:55 Est GFR (Non-Af Amer) > 60 03/21/18 05:55 POC Glucose (mg/dL) 108 mg/dL (65-110) 03/21/18 21:00 Random Glucose 120 mg/dL (65-105) H 03/21/18 05:55 Calcium 9.3 mg/dL (8.4-10.2) 03/21/18 05:55 Total Bilirubin 0.4 mg/dl (0.2-1.3) 03/21/18 05:55 AST 29 U/L (14-36) 03/21/18 05:55 ALT 47 U/L (9-52) 03/21/18 05:55 Alkaline Phosphatase 83 U/L (38-126) 03/21/18 05:55 Total Protein 7.8 G/DL (6.3-8.2) 03/21/18 05:55 Albumin 3.8 g/dL (3.5-5.0) 03/21/18 05:55 Globulin 4.0 gm/dL (2.2-3.9) H 03/21/18 05:55 Albumin/Globulin Ratio 1.0 (1.0-2.1) 03/21/18 05:55 Discharge Exam - Head Exam Head Exam: ATRAUMATIC, NORMOCEPHALIC Discharge Plan - Follow Up Plan Condition: GOOD Disposition: HOME/ ROUTINE
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
[2018-03-23] MEDS: Insulin Lispro (humaLOG) 100 Units/ml Inj SC SCH ×2 (06:36→11:30)
[2018-03-23 08:12] VITALS: BP 159/77; TEMP 97.3; O2SAT 98
[2018-03-23] MEDS: Lactobacillus Acidophilus 500 MU Cap PO SCH (08:19)
[2018-03-23] MEDS: Potassium Chloride 20 mEq ER Tab PO SCH (08:22)
[2018-03-23] MEDS: Enoxaparin 40 mg Syringe SC SCH (08:23)
[2018-03-23 08:25] VITALS: PULSE 60
--- NOTE | 2018-03-23 09:10 | PN ---
DATE: 03/23/2018 SUBJECTIVE: The patient is seen and examined. Interim events noted. Consults noted and appreciated. The patient remains in Transitional Care Unit. The patient feels okay. Denies any chest pain or shortness of breath. PHYSICAL EXAMINATION: GENERAL: The patient is in no acute distress. VITAL SIGNS: Stable. HEART: S1 and S2, normal and regular. LUNGS: Good bilateral air exchange. ABDOMEN: Soft and nontender. Abdominal wound is healing nicely. No sign of cellulitis or complication. EXTREMITIES: No edema. No calf swelling. No tenderness. No acute ischemia. CENTRAL NERVOUS SYSTEM: Essentially unchanged. DIAGNOSTIC DATA: Available diagnostic data reviewed. WBC is down to 11. PLAN: Overall, the patient is medically stable. The patient is discharge today. The patient will be followed up by Dr. Douglas. Case was discussed with the patient's family care doctor, Dr. Douglas. Andrew Boyle MD
== END 2018-03-23 12:50 | disposition home health service (06) | DRG 603 ==
LOC: H.TCU 16:25
PROVIDERS: ADMIT Internal Medicine; ATTEND Internal Medicine
PROC: 3E03329 Introduction of Other Anti-infective into Peripheral Vein, Percutaneous Approach (ICD-10-PCS; principal; 2018-03-17)
PROC: F07Z9FZ Gait Training/Functional Ambulation Treatment using Assistive, Adaptive, Supportive or Protective Equipment (ICD-10-PCS; 2018-03-17)
PROC: F08Z4FZ Home Management Treatment using Assistive, Adaptive, Supportive or Protective Equipment (ICD-10-PCS; 2018-03-17)
PROC: F07M6FZ Therapeutic Exercise Treatment of Musculoskeletal System - Whole Body using Assistive, Adaptive, Supportive or Protective Equipment (ICD-10-PCS; 2018-03-18)
DX: L03.311 Cellulitis of abdominal wall (principal); I50.32 Chronic diastolic (congestive) heart failure; E11.9 Type 2 diabetes mellitus without complications; E66.01 Morbid (severe) obesity due to excess calories; I11.0 Hypertensive heart disease with heart failure; E78.00 Pure hypercholesterolemia, unspecified; M19.90 Unspecified osteoarthritis, unspecified site; Z68.38 Body mass index [BMI] 38.0-38.9, adult; Z85.3 Personal history of malignant neoplasm of breast; Z99.3 Dependence on wheelchair; Z88.2 Allergy status to sulfonamides